=== PATIENT | male | born 2000 | race American Indian/Alaskan Native ===

== ENCOUNTER 2021-03-01 14:38 | Emergency (ER) | payer BC, MEDICAID ==
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
[2021-03-01 16:10] LABS: Basophils % (Auto) 0.3 % (0.0-1.8); Eosinophils # (Auto) 0.1 K/mm3 (0.0-0.4); Eosinophils % (Auto) 1.6 % (0.0-4.3); Hematocrit 46.6 % (35.5-45.6); Hemoglobin 15.1 gm/dl (11.8-15.2); Lymphocytes # (Auto) 3.2 K/mm3 (1.2-5.4); Lymphocytes % (Auto) 38.1 % (13.4-35.0); Mean Corpuscular HGB Conc 33 % (32-34); Mean Corpuscular Volume 87 fl (84-94); Monocytes # (Auto) 0.8 K/mm3 (0.0-0.8); Platelet Count 313 K/mm3 (140-440); Red Blood Count 5.38 M/mm3 (3.65-5.03); Red Cell Distribution Width 13.2 % (13.2-15.2)
[2021-03-01 16:32] LABS: Alanine Aminotransferase 39 units/L (7-56); Albumin 4.7 g/dL (3.9-5); BUN/Creatinine Ratio 14; Blood Urea Nitrogen 14 mg/dL (9-20); Calcium 9.1 mg/dL (8.4-10.2); Hemolysis Index 38
[2021-03-01] MEDS ORDERED: ZIPRASIDONE MESYLATE 20 MG VIAL IM ONE (20:14)
[2021-03-02] MEDS ORDERED: diphenhydrAMINE 25 MG CAP PO PRN (08:35)
[2021-03-02] MEDS ORDERED: LORazepam 2 MG/ML VIAL IM PRN (08:35)
[2021-03-02] MEDS ORDERED: ACETAMINOPHEN 325 MG TAB PO PRN (08:35)
[2021-03-02] MEDS ORDERED: HALOPERIDOL LACTATE 5 MG/1 ML INJ IM PRN (08:35)
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
[2021-03-02] MEDS: DIVALPROEX DR 125 MG TAB PO SCH ×2 (12:41→22:15)
[2021-03-02] MEDS: traZODone 50 MG TAB PO SCH (22:15)
[2021-03-03] MEDS: DIVALPROEX DR 125 MG TAB PO SCH ×2 (09:39→22:48)
--- NOTE | 2021-03-03 10:24 | Progress Note ---
Subjective - Reason for Consult Consult date: 03/03/21 Reason for consult: agitation - Chief Complaint Chief complaint: Per sitter and nurse caring for the patient today: The patient has been calm and has not shown any sign of agitation or aggression. The patient was seen today, he is walking down the dunn with wet socks. His gait appears unsteady. He denies SI/HI or hallucinations of any kind. The patient is calm. REVIEW OF SYSTEMS Constitutional: Negative for weight loss ENT: Negative for stridor Respiratory: Negative for cough or hemoptysis All other systems reviewed and are negative MENTAL STATUS EXAMINATION General Appearance and Behavior: Age appropriate, good hygiene, not wearing appropriate clothes, good eye contact, cooperative Cooperation: cooperative Psychomotor Behavior: Psychomotor normal Mood: "better" Affect and affective range: Restricted Thought Process: goal directed Speech: Normal tone and pace Thought Content Suicidal Ideation: Denies Homicidal Ideation: Denies Hallucinations: Denies Delusions: None elicited Impulse Control: Impaired Insight and Judgment: Limited insight and judgment Memory: Normal Attention: Divided attention impaired Orientation: A/o x 3 Assessment and Plan (1) Mood Disoder, Unspecified Current Visit: Yes Status: Acute Treatment Plan d/c [address] 125mg po BID Trazodone 50mt po qhs Sitter: defer to primary Medical: Per primary Disposition: Do not recommend acute psychiatric inpatient treatment. Will sign off. thank you Case staffed with Dr. Nguyen Mental Status Exam - Vital signs Last Vital Signs Temp 97.9 F 03/02/21 21:18 Pulse 79 03/02/21 21:18 Resp 18 03/02/21 21:18 BP 128/64 03/02/21 21:18 Pulse Ox 99 03/02/21 21:18
[2021-03-03] MEDS: traZODone 50 MG TAB PO SCH (22:48)
[2021-03-04] MEDS: DIVALPROEX DR 125 MG TAB PO SCH ×2 (10:29→21:55)
--- NOTE | 2021-03-04 11:59 | Event Note ---
Date: 03/04/21 Patient here for mood disturbance. Currently the patient is calm and cooperative. He has been signed off by the mental health assessment team. He is now being seen by our case management. Order has been placed. Patient having no other issues at this time. Psychiatry Progress Note Patient Name: MERCED LUND Date of : [birth year] Patient Status: Emergency Emergency Provider: MANDY NICHOLS Date: 03/03/21 10:24 Initialization Date: 03/03/21 10:24 Subjective - Reason for Consult Consult date: 03/03/21 Reason for consult: agitation - Chief Complaint Chief complaint: Per sitter and nurse caring for the patient today: The patient has been calm and has not shown any sign of agitation or aggression. The patient was seen today, he is walking down the dunn with wet socks. His gait appears unsteady. He denies SI/HI or hallucinations of any kind. The patient is calm. REVIEW OF SYSTEMS Constitutional: Negative for weight loss ENT: Negative for stridor Respiratory: Negative for cough or hemoptysis All other systems reviewed and are negative MENTAL STATUS EXAMINATION General Appearance and Behavior: Age appropriate, good hygiene, not wearing appropriate clothes, good eye contact, cooperative Cooperation: cooperative Psychomotor Behavior: Psychomotor normal Mood: "better" Affect and affective range: Restricted Thought Process: goal directed Speech: Normal tone and pace Thought Content Suicidal Ideation: Denies Homicidal Ideation: Denies Hallucinations: Denies Delusions: None elicited Impulse Control: Impaired Insight and Judgment: Limited insight and judgment Memory: Normal Attention: Divided attention impaired Orientation: A/o x 3 Assessment and Plan (1) Mood Disoder, Unspecified Current Visit: Yes Status: Acute Treatment Plan d/c [address] 125mg po BID Trazodone 50mt po qhs Sitter: defer to primary Medical: Per primary Disposition: Do not recommend acute psychiatric inpatient treatment. Will sign off. thank you Case staffed with Dr. Nguyen
[2021-03-04] MEDS: traZODone 50 MG TAB PO SCH (21:55)
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
[2021-03-05] MEDS: DIVALPROEX DR 125 MG TAB PO SCH ×2 (11:37→21:51)
[2021-03-05] MEDS: traZODone 50 MG TAB PO SCH (21:50)
[2021-03-06 07:57] VITALS: BP 120/69
--- NOTE | 2021-03-06 10:54 | Event Note ---
Date: 03/06/21 S: Patient has no complaints. O: Vital signs stable. Patient calm and cooperative. A: Mood disorder, questionable developmental delay P: Patient cleared by psych. lithographic general worker involved. Caregiver is Nadia Winters. Per social work lecturer's note: "SW discussed discharge plans with provider. She reports that she will be able to olive picker pt from hospital today at 3:00-4:00 pm."
[2021-03-06] MEDS: DIVALPROEX DR 125 MG TAB PO SCH (11:07)
--- NOTE | 2021-03-12 11:05 | Electrocardiograph Report ---
[facility] Test Date: 2021-03-05 Test Time: 06:46:56 Pat Name: MERCED LUND Department: Room: Gender: M Director Of Partner Marketing: BAL : 2000 Requested By: MANDY NICHOLS Order Number: [id number] Reading MD: Yeimi Dye Measurements Intervals [place] Rate: 78 P: 5 WI: 130 QRS: 42 QRSD: 91 T: 9 QT: 340 QTc: 389 Interpretive Statements Sinus rhythm No previous ECG available for comparison Electronically Signed On 03-12-2021 11:05:39 EDT by Yeimi Dye
== END 2021-03-06 15:54 | disposition home or self-care (01) ==
LOC: EEVIPCON 14:38 → ED 14:38
DX: F29 Unspecified psychosis not due to a substance or known physiological condition (principal); Z20.822 Contact with and (suspected) exposure to COVID-19; Z79.899 Other long term (current) drug therapy
CPT/HCPCS: 36415; 80053; 85025; 96372; 99285; J3486; U0003; 80320; 93005; G0480